=== PATIENT | female | born 1955 | race African-American/Black ===

== ENCOUNTER 2019-06-20 11:33 | Emergency (ER) | payer MEDICAID ==
[~2019-06-20] VITALS: Ht 170.2 cm; Wt 100.0 kg
[2019-06-20] MEDS ORDERED: TRAMADOL 50MG TABLET PO ONE (12:45)
[2019-06-20 13:18] VITALS: BP 165/75
== END 2019-06-20 14:18 | disposition home or self-care (01) ==
LOC: ER 11:33
DX: G89.29 Other chronic pain (principal); M25.562 Pain in left knee; M25.561 Pain in right knee; M17.0 Bilateral primary osteoarthritis of knee; J06.9 Acute upper respiratory infection, unspecified; J02.9 Acute pharyngitis, unspecified; H92.02 Otalgia, left ear; R05 Cough; I10 Essential (primary) hypertension
CPT/HCPCS: 71045; 73562; 99283